=== PATIENT | female | born 1960 | race Caucasian/White ===

== ENCOUNTER 2018-09-15 09:00 | Day surgery (SDC) | payer MEDICAID, MEDICARE ==
[2018-09-10 12:41] LABS: BASOPHILS % (AUTO) 0.4 % (0.0-5.0); EOSINOPHILS % (AUTO) 1.8 % (0.0-8.0); HEMATOCRIT 38.4 % (36-48); LYMPHOCYTES % (AUTO) 35.8 % (21.0-51.0); MEAN CORPUSCULAR HEMOGLOBIN 29.3 pg (27.0-33.0); MEAN CORPUSCULAR HGB CONC 33.1 g/dL (32.0-36.0); MEAN CORPUSCULAR VOLUME 88.6 fL (79-99); MONOCYTES % (AUTO) 6.6 % (3.0-13.0); NEUTROPHILS % (AUTO) 55.4 % (40.0-77.0); NUCLEATED RED BLOOD CELLS 0.1 % (0.0-0.19); PLATELET COUNT (AUTO) 198 K/uL (130-400); RED BLOOD CELL COUNT(AUTO) 4.33 MIL/uL (4.00-5.50); RED CELL DISTRIBUTION WIDTH 13.8 % (11.0-15.5); WHITE BLOOD COUNT (AUTO) 5.2 K/uL (4.8-10.8)
[2018-09-10 12:48] LABS: CREATININE 1.1 mg/dL (0.5-1.5); POTASSIUM 4.5 mmol/L (3.5-5.1)
[2018-09-10 14:29] VITALS: BP 161/82
--- NOTE | 2018-09-10 14:34 | NUR ---
REPORT INFORMED [facility], OF MEDICATIONS TO TAKE ON MORNING OF PROCEDURE, NO HOLDING OF ASPIRIN PER DR. SERNA AND BATHING WITH CHLORHEXIDINE PRIOR TO PROCEDURE. VERBALIZED UNDERSTANDING.
[2018-09-15] VITALS (20 sets, daily range): BP systolic 99–135; BP diastolic 52–80
[~2018-09-15] VITALS: Ht 167.6 cm; Wt 81.6 kg
[~2018-09-15 09:00] MED LIST: ACET325C3 PO; ASPI-1026 PO; ATOR40TA71 PO; AZEL6DRO6 OU; CEFAZOLIN SODIUM 1 GM VIAL IVP SCH; DEXT1DRO8 OU; DIPH25 PO; FAMO20TA8 PO; FLUT16H NASAL; GABA-531 PO; GLIP5TAB11 PO; HC1C1.5 TP; HYDR-4060 PO; LACT10SO9 PO; LEVE750T10 PO; LEVO75TA4 PO; LISI-613 PO; LOPE-162 PO; MAGN400T6 PO; MONT10TA24 PO; NYST15CR2 TP; POTA10TA14 PO; RISP0.5T19 PO; RISP1TAB26 PO; SENN8.6T32 PO; SERT100T12 PO; ZOLP12.550 PO
[2018-09-15] MEDS ORDERED: SODIUM CHLORIDE 0.9% 1000ML 1,000 ML IV ONE (09:09)
[2018-09-15] MEDS ORDERED: CEFAZOLIN SODIUM 1 GM VIAL ONE (09:23)
--- NOTE | 2018-09-15 09:30 | NUR ---
TOTAL ASSISTANCE pt transfer from wheelchair to strecher via gonzalez lift due to pt is paralized right side Addendum: 09/15/18 at 1035 by HARISH TURK RN RN Amended: Links added.
--- NOTE | 2018-09-15 09:30 | NUR ---
SEIZURE PRECAUTIONS pt has a history seizures .last seizure [place]is 2 months ago.stretcher rails padded Addendum: 09/15/18 at 1040 by HARISH TURK RN RN Amended: Links added.
[2018-09-15] MEDS ORDERED: LIDOCAINE PF 2% 5ML ABBOJECT ONE (10:01)
[2018-09-15] MEDS ORDERED: FENTANYL CITRATE PF 50 MCG/1 ML 2ML VIAL ONE (10:02)
[2018-09-15] MEDS ORDERED: PROPOFOL 10 MG/ML 20ML VIAL IV ONE (10:02)
[2018-09-15] MEDS ORDERED: ROCURONIUM 10MG/1ML SYR 10 MG/ML ML ONE (10:15)
[2018-09-15] MEDS ORDERED: PHENYLEPHRINE HCL 10 MG/ML 1ML VIAL IV ONE (10:24)
[2018-09-15] MEDS ORDERED: EPHEDRINE SULFATE 50 MG/ML AMPULE ONE (10:27)
[2018-09-15] MEDS ORDERED: ONDANSETRON HCL 4 MG/2 ML VIAL ONE (10:46)
[2018-09-15] MEDS ORDERED: GLYCOPYRROLATE 1 MG/5 ML SYRINGE ONE (10:49)
[2018-09-15] MEDS ORDERED: NEOSTIGMINE 5MG/5ML SYR IV ONE (10:49)
[2018-09-15] MEDS ORDERED: IPRATROPIUM/ALBUTEROL SULFATE 3 ML SOLUTION IH ONE (12:33)
[2018-09-15] MEDS ORDERED: KETOROLAC TROMETHAMINE 15MG/ML ONE (12:46)
--- NOTE | 2018-09-15 13:07 | NUR ---
ASSESSMENT RECEIVED PT FROM PACU STAFF Catia LOWE, VANCE. PT DOING WELL. O2 SAT 93-94% ON ROOM AIR. IN REPORT, PT RECEIVED DUO-NEB. PER Clara BELTRE, SPRUE CUTTING PRESS OPERATOR PT CAN BE DISMISSED BACK TO [facility] AT 02 SAT 94%. DRSG TO RIGHT KNEE DRY AND INTACT. NO BLEEDING, OOZING NOTED TO SITE. DENIES ANY PAIN, BREATHING DIFFICULTIES.
--- NOTE | 2018-09-15 13:45 | NUR ---
EVALUATION Clara BELTRE CRNA HERE TO ASSESS PT. PT CAN GO BACK TO [facility].
--- NOTE | 2018-09-15 13:55 | NUR ---
REPORT REPORT GIVEN TO Catia OLMSTEAD LVN AT [facility]. INSTRUCTIONS GIVEN ON WOUND CARE, PRESCRIPTIONS, AND MONITORING FOR CHANGES IN RESP. CONDITION. VERBALIZED UNDERTstanding. NO OTHER QUESTIONS AT THIS TIME. PRESCRIIPTION AND INSTRUCTIONS GIVEN TO [facility].
[2018-09-24] MEDS ORDERED: METO25 PO (09:04)
[2018-09-24] MEDS ORDERED: AMIO200T44 PO (09:04)
[2018-09-24] MEDS ORDERED: APIX5TAB PO (09:04)
== END 2018-09-15 14:05 ==
LOC: DAH 09:00 → EDSTATUS 11:45 → DAH 14:05
PROVIDERS: ATTEND Orthopaedic Surgery
DX: T84.89XA Other specified complication of internal orthopedic prosthetic devices, implants and grafts, initial encounter (principal); Y83.8 Other surgical procedures as the cause of abnormal reaction of the patient, or of later complication, without mention of misadventure at the time of the procedure; Z87.81 Personal history of (healed) traumatic fracture; F32.9 Major depressive disorder, single episode, unspecified; G81.90 Hemiplegia, unspecified affecting unspecified side; Z86.73 Personal history of transient ischemic attack (TIA), and cerebral infarction without residual deficits; F41.9 Anxiety disorder, unspecified; E03.9 Hypothyroidism, unspecified; E11.22 Type 2 diabetes mellitus with diabetic chronic kidney disease; N18.9 Chronic kidney disease, unspecified; Z79.899 Other long term (current) drug therapy; Z98.890 Other specified postprocedural states; K21.9 Gastro-esophageal reflux disease without esophagitis; M19.90 Unspecified osteoarthritis, unspecified site; M25.561 Pain in right knee
CPT/HCPCS: 20680; 36415; 73562; 80048; 82948 ×2; 85025; 88305; 88311; 94640; A4649; A4930 ×3; A6223; J0690; J1885; J2001; J2370; J2405; J2704; J2710; J3010; J3490 ×2; J7030

== ENCOUNTER 2020-11-21 06:51 | Day surgery (SDC) | payer MEDICAID, MEDICARE ==
[~2020-11-21] VITALS: Ht 167.6 cm; Wt 81.2 kg
[~2020-11-21 06:51] MED LIST changes: +0.9%NACL 1000ML 1,000 ML IV ONE; +AMIO200T44 PO; +APIX5TAB PO; -ASPI-1026 PO; -CEFAZOLIN SODIUM 1 GM VIAL IVP SCH; -DIPH25 PO; -LEVO75TA4 PO; -LISI-613 PO; -LOPE-162 PO; +LOPE-198 PO; -MAGN400T6 PO; +MAGN400T8 PO; +METO25 PO; -MONT10TA24 PO; +MONT10TA32 PO; -RISP0.5T19 PO; +RISP0.5T66 PO; -RISP1TAB26 PO; +RISP1TAB98 PO; -SERT100T12 PO; -ZOLP12.550 PO
[2020-11-21 08:03] VITALS: BP 94/59
[2020-11-21] MEDS ORDERED: PROPOFOL 10 MG/ML 20ML VIAL IV ONE (09:35)
[2020-11-21 10:00] VITALS: BP 103/64
[2020-11-21 10:05] VITALS: BP 101/62
[2020-11-21 10:10] VITALS: BP 112/76
[2020-11-21 10:15] VITALS: BP 95/62
[2020-11-21 10:20] VITALS: BP 101/62
== END 2020-11-21 10:45 | disposition home or self-care (01) ==
LOC: ENDO 06:51 → DAH 06:51 → ENDO 10:45
PROVIDERS: ATTEND Internal Medicine Gastroenterology
DX: R19.7 Diarrhea, unspecified (principal); R63.4 Abnormal weight loss; K29.50 Unspecified chronic gastritis without bleeding; K31.89 Other diseases of stomach and duodenum; G40.909 Epilepsy, unspecified, not intractable, without status epilepticus; I10 Essential (primary) hypertension; E03.9 Hypothyroidism, unspecified; E11.9 Type 2 diabetes mellitus without complications; E78.5 Hyperlipidemia, unspecified; K21.9 Gastro-esophageal reflux disease without esophagitis; F41.9 Anxiety disorder, unspecified; F31.9 Bipolar disorder, unspecified; F43.10 Post-traumatic stress disorder, unspecified; G47.00 Insomnia, unspecified; I25.10 Atherosclerotic heart disease of native coronary artery without angina pectoris; Z79.82 Long term (current) use of aspirin; Z79.899 Other long term (current) drug therapy
CPT/HCPCS: 43239; 82948; 87635; 88305; 88341; 88342; 93005; A4215 ×2; A4221; A4222; A4223; A4606; A4620; A4657; A4663; C9803; J3490; J7030; J2704

== ENCOUNTER 2020-11-22 10:25 | Day surgery (SDC) | payer MEDICAID, MEDICARE ==
[2020-11-22] VITALS (11 sets, daily range): BP systolic 127–148; BP diastolic 65–82
[~2020-11-22 10:25] MED LIST changes: -0.9%NACL 1000ML 1,000 ML IV ONE
[2020-11-22] MEDS ORDERED: PROPOFOL 10 MG/ML 20ML VIAL IV ONE (11:32)
[2020-11-22] MEDS ORDERED: LIDOCAINE HCL 1% 20 ML VIAL ONE (11:33)
== END 2020-11-22 13:15 ==
LOC: ENDO 10:25
PROVIDERS: ATTEND Internal Medicine Gastroenterology
DX: R19.7 Diarrhea, unspecified (principal); R63.4 Abnormal weight loss; I10 Essential (primary) hypertension; K21.9 Gastro-esophageal reflux disease without esophagitis; E11.9 Type 2 diabetes mellitus without complications; G47.00 Insomnia, unspecified; F31.9 Bipolar disorder, unspecified; F41.9 Anxiety disorder, unspecified; E03.9 Hypothyroidism, unspecified; E78.5 Hyperlipidemia, unspecified; E66.9 Obesity, unspecified; I25.10 Atherosclerotic heart disease of native coronary artery without angina pectoris; Z90.49 Acquired absence of other specified parts of digestive tract; Z86.73 Personal history of transient ischemic attack (TIA), and cerebral infarction without residual deficits
CPT/HCPCS: 45378; 82948; A4215; A4221; A4222; A4223; A4606; A4620; A4657; A4663; J3490; J2704

== ENCOUNTER 2022-08-01 02:31 | Emergency (ER) | payer MEDICAID, MEDICARE ==
[~2022-08-01 02:31] MED LIST changes: +MAGN400T56 PO; -MAGN400T8 PO; +MONT-39 PO; -MONT10TA32 PO; -NYST15CR2 TP; +NYST15CR40 TP
[2022-08-01] MEDS ORDERED: MORPHINE 4 MG SYG IM ONE (03:00)
[2022-08-01 03:53] VITALS: BP 128/75
== END 2022-08-01 05:32 | disposition short-term general hospital (02) ==
LOC: EDH 02:31
DX: M79.606 Pain in leg, unspecified (principal); R22.41 Localized swelling, mass and lump, right lower limb; Z79.899 Other long term (current) drug therapy; Z79.84 Long term (current) use of oral hypoglycemic drugs
CPT/HCPCS: 99285; 93971; 96372; J2270

== ENCOUNTER 2022-08-07 14:46 | Emergency (ER) | payer MEDICAID, MEDICARE ==
[~2022-08-07] VITALS: Ht 167.6 cm; Wt 102.1 kg
[2022-08-07 15:29] LABS: HEMATOCRIT 44.6 % (36-48); MEAN CORPUSCULAR HEMOGLOBIN 30.6 pg (27.0-33.0); MEAN CORPUSCULAR HGB CONC 32.5 g/dL (32.0-36.0); MEAN CORPUSCULAR VOLUME 94.1 fL (79-99); RED BLOOD CELL COUNT(AUTO) 4.74 MIL/uL (4.00-5.50); RED CELL DISTRIBUTION WIDTH 14.2 % (11.0-15.5)
[2022-08-07 15:41] LABS: CREATININE 1.5 mg/dL (0.5-1.5); POTASSIUM 3.7 mmol/L (3.5-5.1)
[2022-08-07 15:46] LABS: ALBUMIN 3.3 g/dL (3.5-5.0); TOTAL PROTEIN, SERUM 8.1 g/dL (6.0-8.3)
[2022-08-07 16:01] LABS: APPEARANCE,URINE TURBID (CLEAR); BILIRUBIN,URINE NEGATIVE (NEGATIVE); COLOR,URINE LIGHT-ORANGE (YELLOW); GLUCOSE, URINE (UA) 70 mg/dL (NEGATIVE); KETONES,URINE 10 mg/dL (NEGATIVE); LEUKOCYTE ESTERASE ,URINE 500 Leu/uL (NEGATIVE); NITRATE,URINE NEGATIVE (NEGATIVE); OCCULT BLOOD,URINE MODERATE (NEGATIVE); PH,URINE 5.5 (5.0-8.0); PROTEIN,URINE 300 mg/dL (NEGATIVE); UROBILINOGEN,URINE 0.2 mg/dL (0.2-1.0)
[2022-08-07 16:09] LABS: BACTERIA,URINE MOD /HPF (None Seen); MUCUS,URINE FEW LPF (None Seen); SQUAMOUS EPITHELIAL CELL,UR MOD /HPF (0-2); WBC,URINE 51-100 /HPF (0-1); YEAST,URINE BUDDING FEW /HPF (None Seen)
[2022-08-07] MEDS ORDERED: CEFTRIAXONE 1G VIAL IVP ONE (16:30)
[2022-08-07] MEDS ORDERED: DiphenhydrAMINE HCL 50 MG/ML VIAL IV ONE (17:30)
[2022-08-07] MEDS ORDERED: PROCHLORPERAZINE 10MG/2ML INJ IV ONE (17:30)
[2022-08-07] MEDS ORDERED: 0.9%NACL 1000ML 1,000 ML IV ONE (18:30)
[2022-08-07] MEDS ORDERED: MORPHINE 4 MG SYG IVP ONE (18:30)
[2022-08-07] MEDS ORDERED: IOHEXOL 350 MG/ML 100ML INFUS..BTL IV ONE (19:09)
[2022-08-07] MEDS ORDERED: OMEP40CA21 PO (21:02)
[2022-08-07] MEDS ORDERED: ONDA-104 PO (21:02)
[2022-08-07] MEDS ORDERED: CEPH500T PO (21:04)
[2022-08-07 23:54] VITALS: BP 139/72
== END 2022-08-07 23:57 | disposition home or self-care (01) ==
LOC: EDH 14:46
DX: N39.0 Urinary tract infection, site not specified (principal); E11.9 Type 2 diabetes mellitus without complications; E78.00 Pure hypercholesterolemia, unspecified; I10 Essential (primary) hypertension; K21.9 Gastro-esophageal reflux disease without esophagitis; Z79.01 Long term (current) use of anticoagulants; Z79.84 Long term (current) use of oral hypoglycemic drugs; Z79.899 Other long term (current) drug therapy
CPT/HCPCS: 99285; 74177; 96374; 96361; 96375; 80053; 83690; 85027; 87077; 87088; 87186; 81001; 36415; 51701; 93005 ×2; J1200; J7030; J0780; J0696; J2270; Q9967

== ENCOUNTER 2023-12-27 22:11 | Observation (INO) | payer MEDICARE ==
[~2023-12-27] VITALS: Ht 167.6 cm; Wt 112.7 kg
[~2023-12-27 22:11] MED LIST changes: +AMOX1TAB16 PO; +ASCO500C18 PO; +ASPI-1005 PO; +ATOR40TA69 PO; +BACL5TAB PO; +BISA10SU11 RC; +CEPH500T PO; +DIPH50CA37 PO; +DOXE25CA3 PO; +EMPA25TA PO; +GABA-1405 PO; +GLIP10TA9 PO; -GLIP5TAB11 PO; +GLIP5TAB15 PO; +INSLAN SQ; +LEVE500T19 PO; +LISI2.5T13 PO; +MAG-77 PO; +MAGN400T53 PO; +MOM30 PO; +OMEP20TA2 PO; +OMEP40CA21 PO; +ONDA-104 PO; +ONDA-245 PO; +PRIM125T PO; +PYRI1I IM; +RISP-30 PO; -RISP0.5T66 PO; +RISP0.5T80 PO; -RISP1TAB98 PO; +SENN-308 PO; +SIME80TA12 PO; +[UNRECOGNIZED DRUG - CODE] PO
[2023-12-27 22:45] LABS: BASOPHILS # (AUTO) 0.02 K/uL (0.00-0.20); BASOPHILS % (AUTO) 0.3 % (0.0-5.0); EOSINOPHILS # (AUTO) 0.25 K/uL (0.00-0.70); EOSINOPHILS % (AUTO) 3.1 % (0.0-8.0); HEMATOCRIT 41.3 % (36-48); IMMATURE GRANULOCYTE ABSOLUTE 0.03 K/uL (0-1); LYMPHOCYTES # (AUTO) 2.5 K/uL (1.0-4.8); LYMPHOCYTES % (AUTO) 31.4 % (21.0-51.0); MEAN CORPUSCULAR HEMOGLOBIN 28.5 pg (27.0-33.0); MEAN CORPUSCULAR HGB CONC 31.7 g/dL (32.0-36.0); MEAN CORPUSCULAR VOLUME 89.8 fL (79-99); MONOCYTES # (AUTO) 0.5 K/uL (0.1-1.0); MONOCYTES % (AUTO) 6.3 % (3.0-13.0); NEUTROPHILS # (AUTO) 4.7 K/uL (1.8-7.7); NEUTROPHILS % (AUTO) 58.5 % (40.0-77.0); PLATELET COUNT (AUTO) 195 K/uL (130-400); RED CELL DISTRIBUTION WIDTH 15.9 % (11.0-15.5)
[2023-12-27 22:58] LABS: CREATININE 1.6 mg/dL (0.5-1.0); POTASSIUM 4.6 mmol/L (3.5-5.1)
[2023-12-27 23:00] LABS: INR <= 0.93 (0.85-1.15)
[2023-12-27 23:01] LABS: PARTIAL THROMBOPLASTIN TIME 24.5 SEC (26.3-35.5)
[2023-12-27 23:06] LABS: SARS-CoV-2, RNA, NAAT NEGATIVE SARS CoV-2 (NEGATIVE)
[2023-12-27 23:10] LABS: INFLUENZA TYPE A Negative For Type A (NEGATIVE); INFLUENZA TYPE B Negative For Type B (NEGATIVE)
[2023-12-27 23:36] LABS: B-TYPE NATRIURETIC PEPTIDE 10 pg/mL (0-100)
[2023-12-28] VITALS (9 sets, daily range): BP systolic 100–142; BP diastolic 50–70; PULSE 75–105; RESP 16–20; TEMP 97.7–100; O2SAT 93–97
[2023-12-28] MEDS: furoSEMIDE 40MG VIAL IV ONE (01:33)
[2023-12-28] MEDS ORDERED: acetaMINOPHEN 325 MG TAB PO PRN (03:30)
[2023-12-28] MEDS ORDERED: guaiFENesin-DM 200/20MG 10ML PO PRN (03:30)
[2023-12-28] MEDS ORDERED: NITROGLYCERIN 0.4 MG SL TAB SL PRN (03:30)
[2023-12-28] MEDS: furoSEMIDE 40MG VIAL IV SCH (03:30)
[2023-12-28] MEDS ORDERED: ONDANSETRON 4MG INJ IV PRN (03:30)
[2023-12-28] MEDS ORDERED: DEXTROSE 50%-WATER 50 ML DISP.SYRIN IV PRN (03:30)
[2023-12-28] MEDS ORDERED: GLUCAGON 1MG KIT 1 MG ML IM PRN (03:30)
[2023-12-28] MEDS ORDERED: MAG/ALUM/SIMETH 30 ML UDCUP PO PRN (03:30)
[2023-12-28] MEDS ORDERED: hydrALAZine 20MG/ML VIAL IV PRN (03:30)
[2023-12-28 04:08] LABS: APPEARANCE,URINE CLEAR (CLEAR); BILIRUBIN,URINE NEGATIVE (NEGATIVE); COLOR,URINE LIGHT-YELLOW (YELLOW); GLUCOSE, URINE (UA) >=1000 mg/dL (NEGATIVE); KETONES,URINE NEGATIVE (NEGATIVE); LEUKOCYTE ESTERASE ,URINE 250 Leu/uL (NEGATIVE); NITRATE,URINE NEGATIVE (NEGATIVE); OCCULT BLOOD,URINE NEGATIVE (NEGATIVE); PROTEIN,URINE 30 mg/dL (NEGATIVE); UROBILINOGEN,URINE 0.2 mg/dL (0.2-1.0)
[2023-12-28 04:25] LABS: ABG BASE EXCESS 1.8 mmol/L (-2.0-3.0); ABG HCO3 28.3 mmol/L (21.0-28.0); ABG OXYGEN SATURATION 92.2 % (94.0-98.0); ABG PCO2 52 mmHg (32-45); ABG PH 7.355 (7.350-7.450); DEVICE COMMENT RR RN; PO2, ARTERIAL BG 66.6 mmHg (83.0-108.0); VENT MODE, BG RA (ROOM AIR)
[2023-12-28 04:34] LABS: ADD UA MICROSCOPIC YES
[2023-12-28 05:35] LABS: BACTERIA,URINE Moderate /HPF (None Seen); SQUAMOUS EPITHELIAL CELL,UR Few /HPF (0-2)
[2023-12-28 05:37] LABS: YEAST,URINE BUDDING Rare /HPF (None Seen)
[2023-12-28] MEDS: ALBUTEROL 0.083% 2.5 MG/3 ML INH IH SCH (06:41)
[2023-12-28] MEDS ORDERED: VITAMIN D PO (07:23)
[2023-12-28] MEDS ORDERED: FURO20TA4 PO (07:23)
[2023-12-28] MEDS ORDERED: CLOP-31 PO (07:23)
[2023-12-28] MEDS ORDERED: MAGNESIUM HYDROXIDE (07:23)
[2023-12-28] MEDS ORDERED: INSU100I24 SQ (07:23)
[2023-12-28] MEDS ORDERED: TRAM50TA4 PO (07:23)
[2023-12-28] MEDS ORDERED: OLOP5DRO21 OP (07:23)
[2023-12-28] MEDS ORDERED: BUSP15 PO (07:23)
[2023-12-28] MEDS ORDERED: CARB-283 OP (07:23)
[2023-12-28] MEDS ORDERED: TRIAM15CRM TP (07:23)
[2023-12-28] MEDS ORDERED: PROP15DR OP (07:23)
[2023-12-28] MEDS ORDERED: MAGNESIUM HYDROXIDE PO (07:23)
[2023-12-28] MEDS ORDERED: SEMA0.258 SQ (07:23)
[2023-12-28] MEDS ORDERED: LOSA50TA64 PO (07:23)
[2023-12-28] MEDS ORDERED: LEVE1000 PO (07:23)
[2023-12-28] MEDS: INSULIN humuLIN R 100 UNIT/ML 3ML SQ SCH (07:30)
[2023-12-28] MEDS: ASPIRIN 81 MG EC TAB PO SCH (08:47)
[2023-12-28] MEDS: HEParin 5,000 UNIT VIAL SQ SCH (08:53)
[2023-12-28 10:07] LABS: HEMOGLOBIN A1C 6.9 % (4.0-6.0)
[2023-12-28] MEDS: atorVAStatin 40 MG TABLET PO SCH (20:57)
[2023-12-29] VITALS: BP_SYST 122; BP_SYST 142; BP_DIAS 60; BP_DIAS 70; PULSE 84; PULSE 87; RESP 18; TEMP 97.7; TEMP 98.1
[2023-12-29 07:15] VITALS: PULSE 89; RESP 19; O2SAT 94
[2023-12-29 08:00] VITALS: BP 138/59; PULSE 75; RESP 18; TEMP 97.4; O2SAT 95
[2023-12-29 08:18] LABS: CREATININE 1.5 mg/dL (0.5-1.0); MAGNESIUM 2.4 mg/dL (1.80-2.40); POTASSIUM 4.2 mmol/L (3.5-5.1)
== END 2023-12-29 13:40 | disposition short-term general hospital (02) ==
LOC: EDH 22:11 → EDHIP 12-28 03:12 → 4CH 12-28 05:29
PROVIDERS: ADMIT Internal Medicine Pulmonary Disease; ATTEND Internal Medicine Pulmonary Disease
DX: I25.110 Atherosclerotic heart disease of native coronary artery with unstable angina pectoris (principal); Z20.822 Contact with and (suspected) exposure to COVID-19; I13.0 Hypertensive heart and chronic kidney disease with heart failure and stage 1 through stage 4 chronic kidney disease, or unspecified chronic kidney disease; E11.22 Type 2 diabetes mellitus with diabetic chronic kidney disease; N18.30 Chronic kidney disease, stage 3 unspecified; I50.9 Heart failure, unspecified; E66.01 Morbid (severe) obesity due to excess calories; R53.2 Functional quadriplegia; J96.01 Acute respiratory failure with hypoxia; J81.1 Chronic pulmonary edema; E11.65 Type 2 diabetes mellitus with hyperglycemia; K21.9 Gastro-esophageal reflux disease without esophagitis; F41.9 Anxiety disorder, unspecified; F31.9 Bipolar disorder, unspecified; I48.92 Unspecified atrial flutter; E78.00 Pure hypercholesterolemia, unspecified; E03.9 Hypothyroidism, unspecified; I25.2 Old myocardial infarction; J45.909 Unspecified asthma, uncomplicated; F43.10 Post-traumatic stress disorder, unspecified; Z88.8 Allergy status to other drugs, medicaments and biological substances; Z74.01 Bed confinement status; Z79.4 Long term (current) use of insulin; Z86.73 Personal history of transient ischemic attack (TIA), and cerebral infarction without residual deficits; Z90.49 Acquired absence of other specified parts of digestive tract; Z68.41 Body mass index [BMI] 40.0-44.9, adult; Z79.899 Other long term (current) drug therapy
CPT/HCPCS: 99285; 82550; 84484 ×4; 80048 ×2; 83880; 85025; 85610; 85730; 87804 ×2; 87635; 71045; 93005; 96372 ×2; 96374; 96376; 83036; 84443; 82803; 87086 ×2; 87186; 82948 ×2; 81001; 36415 ×2; 93971; 93926; 36600; 94640; 83735; 93306; G0378 ×33; J1644 ×3; J1940 ×2; 94664

== ENCOUNTER → 2024-06-07 | Outpatient (CLI) | payer MEDICARE ==
[~2024-06-07] MED LIST changes: -ACET325C3 PO; -AMIO200T44 PO; -AMOX1TAB16 PO; -APIX5TAB PO; -ASCO500C18 PO; -ASPI-1005 PO; -ATOR40TA69 PO; -AZEL6DRO6 OU; +BUSP15 PO; +CARB-283 OP; -CEPH500T PO; +CLOP-31 PO; -DEXT1DRO8 OU; -FAMO20TA8 PO; +FURO20TA4 PO; -GABA-1405 PO; -GLIP10TA9 PO; -GLIP5TAB15 PO; -HC1C1.5 TP; -HYDR-4060 PO; -INSLAN SQ; +INSU100I24 SQ; -LACT10SO9 PO; +LEVE1000 PO; -LEVE750T10 PO; -LISI2.5T13 PO; +LOSA50TA64 PO; -MAG-77 PO; -MAGN400T53 PO; -MAGN400T56 PO; -METO25 PO; -MOM30 PO; -MONT-39 PO; -NYST15CR40 TP; +OLOP5DRO21 OP; -OMEP40CA21 PO; -ONDA-104 PO; -ONDA-245 PO; -POTA10TA14 PO; +PROP15DR OP; -PYRI1I IM; -RISP-30 PO; -RISP0.5T80 PO; +SEMA0.258 SQ; -SENN8.6T32 PO; +TRAM50TA4 PO; +TRIAM15CRM TP; +VITAMIN D PO; -[UNRECOGNIZED DRUG - CODE] PO
--- NOTE | 2024-06-10 16:20 | HMCSR ---
APPROVED REPORT Bilateral Lower Extremity Venous Study for DVT., Venous Competence. Indications i87.1, i87.2 Vein Imaging CFV (R): Normal flow, augmentation and compression. No evidence of DVT. 12.6mm 561ms of reflux. SFJ (R): Normal flow, augmentation and compression. No evidence of DVT. FEM (R): Normal flow, augmentation and compression. No evidence of DVT. (distal SFV not seen) POP (R): Normal flow, augmentation and compression. No evidence of DVT. DFV (R): Normal flow, augmentation and compression. No evidence of DVT. PTV (R): Normal flow, augmentation and compression. No evidence of DVT. Peroneals (R): Normal flow, augmentation and compression. No evidence of DVT. CFV (L): Normal flow, augmentation and compression. No evidence of DVT. 10.4mm 0.0ms of reflux. SFJ (L): Normal flow, augmentation and compression. No evidence of DVT. FEM (L): Normal flow, augmentation and compression. No evidence of DVT. (distal SFV not seen) POP (L): Normal flow, augmentation and compression. No evidence of DVT. 2694ms of relux. DFV (L): Normal flow, augmentation and compression. No evidence of DVT. PTV (L): Normal flow, augmentation and compression. No evidence of DVT. Peroneals (L): Normal flow, augmentation and compression. No evidence of DVT. Technologist Impression Patient wheelchair bound, scanned in chair. No servando gipson at image center. Exam [facility]. Deep veins of the bilateral lower extremities appear patent without thrombus (bilateral distal SFV no t seen) Evidence of deep venous reflux in the LPopliteal vein. Superficial venous insufficiency RGSV and RSSV. RGSV junction 6.2mm 394ms thigh 4.6mm 2161ms knee 4.6mm 2350ms calf 2.4mm 2256ms RSSV prox 3.7mm 506ms mid 3.2mm 1211ms *Patient may not be suitable for ablations due to immobility which would cause higher risk of DVT* LGSV junction 6.3mm 428ms thigh 4.3mm 372ms knee 4.8mm 456ms calf 3.6mm 461ms LSSV prox 1.8mm 0.0ms mid 2.1mm 0.0ms Technically difficult study Conclusion Patient wheelchair bound, scanned in chair. No servando gipson at image center. Exam required two professi onal sonographers. Deep veins of the bilateral lower extremities appear patent without thrombus (bilateral distal SFV no t seen) Evidence of deep venous reflux in the LPopliteal vein. Superficial venous insufficiency RGSV and RSSV. Conclusion Patient wheelchair bound, scanned in chair. No servando gipson at image center. Exam required two professi onal sonographers. Deep veins of the bilateral lower extremities appear patent without thrombus (bilateral distal SFV no t seen) Evidence of deep venous reflux in the LPopliteal vein. Superficial venous insufficiency RGSV and RSSV.
== END | disposition home or self-care (01) ==
LOC: SHCH 15:00
PROVIDERS: ATTEND Student in an Organized Health Care Education/Training Program
DX: I87.2 Venous insufficiency (chronic) (peripheral) (principal); I87.1 Compression of vein; Z99.3 Dependence on wheelchair
CPT/HCPCS: 93970